=== PATIENT | male | born 1960 | race Caucasian/White ===

== ENCOUNTER 2023-03-01 02:30 | Day surgery (SDC) | payer OTHER, MEDICAID, SELFPAY ==
[2023-02-28 14:09] VITALS: BMI 41.8
--- NOTE | 2023-02-28 14:39 | PC.NURSE ---
Report to the Outpatient Waiting Room, entrance under the green pavilion located off [facility], at time __6:00AM on date __03/01/23 . Planned Procedure Time: __7:30AM . Time changes happen often and if your time is changed the preop area will call you the afternoon before. - You and your visitor will be asked to self-screen and do not enter if you have any COVID symptoms. - A mask is optional within the hospital at this time. Patients may have clear liquids (water, carbonated beverages, clear teas, apple juice) until 3 hours prior to surgery with a maximum of 20 ounces. - No food from midnight until time of surgery Take the following medications with a SIP of water the morning of surgery: ____HYDROCODONE NEEDED DO NOT STOP ANY OF YOUR OTHER PRESCRIPTION MEDICATIONS PRIOR TO SURGERY ?EXCEPT THE FOLLOWING Medications to discontinue per physician NONE Date to take last dose Please no make-up, nail egyptian, hairspray, perfume, deodorant, or body powder the day of surgery. No jewelry (including any body piercings) or valuables the day of surgery, leave them at home. Please take a shower or bath the night before, or the morning of, surgery with an antibacterial soap. Wear comfortable, loose fitting clothing. Children are encouraged to wear pajamas. - Jewelry must be removed prior to entering the operating room. Rings and piercings that are not removed may be cut off. - The hospital will not accept responsibility for valuables. - Please leave all valuables, including medications, at home the day of surgery. If you are going home after surgery, a licensed driver merchandiser must drive you home. - NO public transportation without another adult if you receive anesthesia. - We recommend that an adult stay with you for 24 hours following discharge. - We also recommend that you do not drive, make important decision, drink alcoholic beverages, or take any drugs that were not prescribed by your health care provider for at least 24 hours after your discharge time. Follow any additional instructions given to you from your surgeon. If you or anyone in your household have experienced Covid symptoms in the past week, please notify your surgeon or the nurse liaison at the phone number below for possible testing. Telephone instructions given to __PATIENT and asked if any additional questions and then verbalized understanding. Patient advised to call surgeon office or pre surgery nurse liaison [phone] if any additional questions.
[2023-03-01] VITALS (8 sets, daily range): BP systolic 146–169; BP diastolic 79–96; PULSE 61–80; RESP 12–20; TEMP 36.2; O2SAT 92–100
--- NOTE | ~2023-03-01 | XR_ITS ---
EXAMINATION: XR retrograde pyelo w/stent RT DATE: 03/01/2023 08:28 INDICATION: Right ureteral stone. TECHNIQUE: 52 intraoperative fluoroscopic views of the abdomen and pelvis were obtained. I was not pr esent. Fluoroscopy exposure time was 76 seconds. COMPARISON: None. FINDINGS: The right-sided retrograde pyelogram demonstrates severe hydronephrosis. There is a stone i n the proximal right ureter. The final images demonstrate a right internal ureteral stent in expected position. IMPRESSION: 1. Stone in the proximal right ureter with severe right hydronephrosis. 2. Right internal ureteral stent in expected position. Reviewed, dictated and finalized at location A.
--- NOTE | 2023-03-01 04:42 | WPDHPUPDATE1 ---
History and Physical Update Update Date/Time: 03/01/23 04:42 History and Physical has been reviewed, including an updated exam of the patient. There are NO changes in the patient's condition. Risks, benefits, and alternatives have been discussed and questions answered. Patient agrees to proceed with procedure.
[2023-03-01] MEDS: LACTATED RINGERS 1,000 ML 30 ML IV CONT (06:55)
--- NOTE | 2023-03-01 07:13 | P.PNAN_ITS ---
Anes - Initial Pre Proc Eval Procedure: Operation Date: 03/01/23 07:30 Proposed Procedures p Cystoscopy, Right Ureteroscopy, Right Retrograde Pyelogram, Possible Right Stone Extraction, Possible Right Stent Placement, Possible Holmium Laser - Oscar Mccord MD Date/Time: 03/01/23 07:13 Surgeon: Oscar Mccord MD Pre Op Diagnosis: renal stones Patient Data Age: 62 Gender: M Height: 1.8 m Weight: 136 kg Allergies Allergy/AdvReac Type Severity Reaction Status Date / Time No Known Allergies Allergy Verified 03/01/23 06:23 Home Medications Medication Instructions Recorded Confirmed Type acetaminophen 500 mg capsule 1,000 mg PO Q6H PRN Pain 02/28/23 03/01/23 History calcium carbonate 300 mg (750 mg) 300 mg PO BID PRN Indigestion 02/28/23 03/01/23 History chewable tablet (Tums) hydrocodone 5 mg-acetaminophen 325 1 tablet PO Q6-8H PRN Pain 02/28/23 03/01/23 History mg tablet Patient hx anesthesia problems: none Family hx anesthesia problems: none Results Review: All pre-operative results and documents have been reviewed as part of the pre- operative evaluation. [facility] Social History Social History Smoking status: Never smoker Alcohol intake: current Substance use: never Living arrangements: with family Additional living arrangements comments: FATHER Spiritual care concerns: No Anes - Eval Final PreProcedure Day of Procedure 03/01/23 07:13 Patient weight: normal and morbidly obese Heart: regular rate and rhythm Lungs: clear to auscultation Airway: Mallampati scale class III Neurological: alert and oriented Last oral intake: >/= 8 hours ASA classification: III Emergent: no Anesthetic plan: proceed Anesthesia type and monitoring: general LMA and standard monitoring Results Review: All pre-operative results and documents have been reviewed as part of the pre- operative evaluation. Informed Consent: The patient's anesthetic plan and its attendant risks and benefits were discussed with the patient/family/POA. Questions were solicited and answers provided to the satisfaction of the patient/family/POA.
[2023-03-01] MEDS: ceFAZolin 3 GM/D5W 100 ML 100 ML IVPB (07:28)
[2023-03-01] MEDS: LIDOCAINE HCL 2% GEL UROJET 10 ML PKG MUCOUS MEM (07:53)
--- NOTE | 2023-03-01 08:17 | W.PM.PROC2 ---
Procedure Note - Detailed Date of Procedure 03/01/23 Pre-op Diagnosis Right ureteral stone Post-op Diagnosis Same Procedure Performed Cystoscopy, right retrograde pyelography, right ureteroscopy with laser lithotripsy and stone extraction, right ureteral stent placement Surgeon Oscar Mccord MD Anesthesia General Description of Procedure patient is brought to the operative suite was prepped draped in routine sterile fashion while in dorsal lithotomy position after the uneventful induction of a general LMA anesthetic. Cystoscopy is undertaken with a 19 F rigid cystoscope. He has minimal prostatic hyperplasia. The bladder mucosa is normal. There was no intravesical foreign body or neoplasm. He has a single orthotopic ureteral orifice bilaterally. Eight F bulb tip catheter was used to obtain a right retrograde pyelogram it outlined the collecting system. 0.035 in glidewire was advanced into the right renal pelvis and the distal ureter was dilated with an 8 F 10 F dilator. An 11/13 F access sheath was placed along with a safety wire. Ureteroscopy was undertaken with a short tapered semi-rigid ureteral scope. His 1.4 cm stone had been in the proximal ureter but is displaced with retrograde pyelography into the renal pelvis. Using flexible ureteral scope I nudged into an upper pole calyx. Using a 200 micron holmium laser fiber I 1st dusted the stone with power settings of 0.3 once at a frequency of 50. And then dusted the smaller fragments at 0.5 w and 80 hertz frequency. All pieces less than 3 mm in size. A couple of pieces extracted with 1.9 F disposable stone back at the skin to be sent for analysis. A 4.8 F variable length stent was positioned with the proximal coil in the renal pelvis and distal coil in the bladder. Scopes wires removed the patient was taken recovery room good condition. Drains Yes Packing No Pathology Yes Complications No immediate complications Condition Stable Disposition PACU
[2023-03-01] MEDS: fentaNYL CITRATE INJ (*CRX) 100 MCG/2 ML VIAL 25 MCG IV PUSH ×2 (08:45→08:48)
== END 2023-03-01 10:12 | disposition home or self-care (01) ==
PROVIDERS: PCP Internal Medicine; Visit Provider Urology
PROC: (CPT 52352; principal; 2023-03-01 07:30)
DX: N20.1 Calculus of ureter (principal); E66.9 Obesity, unspecified; Z68.41 Body mass index [BMI] 40.0-44.9, adult
CPT/HCPCS: 52356; 74420; 82365; 88300; C1758; C1769; C1894; C2617; J0690; J1100; J2250; J2405; J2704; J3010; J7120; Q9966

== ENCOUNTER 2023-03-14 09:20 | Outpatient (CLI) | payer OTHER, MEDICAID, SELFPAY ==
--- NOTE | ~2023-03-14 | XR_ITS ---
Supine and upright views of the abdomen Clinical history: Kidney stone Findings: Bowel gas pattern is nonspecific. No evidence for obstruction or free air. No abnormal mass lesion or calcification is seen. Osseous structures are intact. Impression: No significant abnormality is seen. Reviewed, dictated and finalized at [facility]. Impression: No significant abnormality is seen.
== END 2023-03-14 09:21 | disposition home or self-care (01) ==
PROVIDERS: PCP Internal Medicine; Visit Provider Urology
DX: N20.0 Calculus of kidney (principal)
CPT/HCPCS: 74018

== ENCOUNTER 2023-04-26 09:22 | Outpatient (CLI) | payer OTHER, MEDICAID, SELFPAY ==
--- NOTE | ~2023-04-26 | XR_ITS ---
XR abdomen/kub 1V 04/26/2023 09:40 INDICATION: Kidney stones TECHNIQUE: KUB COMPARISON: None FINDINGS: Bowel gas pattern is normal. There is no evidence of free air, mass, organomegaly, ascites or obstruction. No abnormal calculi are seen. The bones appear intact. There are coarse prostate c alcifications. Moderate lumbar spondylosis. There are cholecystectomy clips. IMPRESSION: 1: No acute abdominal abnormality identified. Reviewed, dictated and finalized at location L.
== END 2023-04-26 09:23 | disposition home or self-care (01) ==
PROVIDERS: PCP Internal Medicine; Visit Provider Urology
DX: N20.0 Calculus of kidney (principal)
CPT/HCPCS: 74018

== ENCOUNTER 2024-05-29 00:25 | Day surgery (SDC) | payer OTHER, SELFPAY ==
--- NOTE | 2024-05-16 10:14 | P.HP_ITS ---
History of Present Illness History of Present Illness Consent: Risks, benefits, and alternatives have been discussed and questions answered. Patient agrees to proceed with procedure. Chief complaint: large bladder stone Narrative: Pilo Miller is a 63 year old malereports that for a year, since we removed his ureteral stent, that it manley like a mother-f'er, feels like he is pissing napalm. Additionally he reports intermittent marked obstructive voiding sym ptoms, episodes of incontinence and intermittent left flank pain. ?He had a renal ultrasound on 03/12/2024 the shows an atypical small cystic lesion in his left kidney and a possible bladder stone. CT urogram ( [facility]): 2.5 cm bladder stone with normal upper urinary tracts otherwise. Will plan cystoscopy with laser lithotripsy and extraction bladder stone Review of Systems Cardiovascular: Cardiovascular: Denies chest pain, Denies lightheadedness, Denies palpitations and Denies dyspnea Respiratory: Respiratory: Denies dyspnea Gastrointestinal: Gastrointestinal: Denies diarrhea, Denies nausea and Denies vomiting Genitourinary: Genitourinary: Denies hematuria and Denies dysuria Endocrine: Endocrine: Denies palpitations [facility] Social History Social History Smoking status: Never smoker Alcohol intake: current Substance use: never Living arrangements: with family Additional living arrangements comments: FATHER Spiritual care concerns: No Meds Home Medications and Allergies Home Medications Medication Instructions Recorded Confirmed Type acetaminophen 500 mg capsule 1,000 mg PO Q6H PRN Pain 02/28/23 03/01/23 History calcium carbonate (Tums) 300 mg PO BID PRN Indigestion 02/28/23 03/01/23 History hydrocodone 5 mg-acetaminophen 325 1 tablet PO Q6-8H PRN Pain 02/28/23 03/01/23 History mg tablet hydrocodone 5 mg-acetaminophen 325 1 - 2 tablet PO Q6H PRN pain #20 03/01/23 Rx mg tablet tabs sulfamethoxazole 800 1 tablet PO Q12H #6 tabs 03/01/23 Rx mg-trimethoprim 160 mg tablet Allergies Allergy/AdvReac Type Severity Reaction Status Date / Time No Known Allergies Allergy Verified 03/01/23 06:23 Exam Const: General: no acute distress Resp: Effort & Inspection: normal respiratory effort GI: Inspection: non-distended GI Palp: No abdominal tenderness and No Guarding due to palpation present (GI) Auscultation: normal bowel sounds Assessment and Plan Assessment and plan (1) Bladder stone: Code(s): N21.0 - Calculus in bladder Status: Acute Assessment and Plan: * Will plan cystoscopy with laser lithotripsy and extraction bladder stone
[2024-05-19 13:52] VITALS: BMI 35.9
--- NOTE | 2024-05-19 14:01 | PC.NURSE ---
Report to the Outpatient Waiting Room, entrance under the green pavilion located off [facility], at time __0630 on date _05/29/24_. Planned Procedure Time: __0830.? Time changes happen often and if your time is changed the preop area will call you the afternoon before. - You and your visitor will be asked to self-screen and do not enter if you have any COVID symptoms. Please call surgeon if you need to reschedule. - A mask is optional within the hospital at this time. Patients may have clear liquids (water, carbonated beverages, clear teas, apple juice) until 3 hours prior to surgery with a maximum of 20 ounces. - No food from midnight until time of surgery and no smoking - Infants may have breast milk until 4 hours before surgery, infant formula 6 hours prior to surgery. - Children will be allowed to drink immediately following surgery.? If applicable, please bring a bottle or sippy cup to assist with drinking. Juice, water, soda, and popsicles are readily available.? For infants on formula, please bring formula the day of surgery.? Pacifiers are allowed. Take only the following medications with a SIP of water on the morning of surgery: ____NONE DO NOT STOP ANY OF YOUR OTHER PRESCRIPTION MEDICATIONS PRIOR TO SURGERY EXCEPT THE FOLLOWING Medications to discontinue per physician NONE Date to take last dose Please no make-up, nail lithuanian, hairspray, perfume, deodorant, or body powder the day of surgery.? No jewelry (including any body piercings) or valuables the day of surgery, leave them at home.? Please take a shower or bath the night before, or the morning of, surgery with an antibacterial soap.? Wear comfortable, loose fitting clothing.? Children are encouraged to wear pajamas. - Jewelry must be removed prior to entering the operating room.? Rings and piercings that are not removed may be cut off. - The hospital will not accept responsibility for valuables.? - Please leave all valuables, including medications, at home the day of surgery. If you are going home after surgery, a licensed line haul driver must drive you home.? - NO public transportation without another adult if you receive anesthesia. - We recommend that an adult stay with you for 24 hours following discharge. - We also recommend that you do not drive, make important decision, drink alcoholic beverages, or take any drugs that were not prescribed by your health care provider for at least 24 hours after your discharge time. For Pediatric surgeries, we recommend two adults accompany the child home. Follow any additional instructions given to you from your surgeon. Telephone instructions given to _PATIENT__and asked if any additional questions and then verbalized understanding. Patient advised to call surgeon office or pre surgery nurse liaison [phone] if any additional questions.
[2024-05-29] VITALS (10 sets, daily range): BP systolic 137–168; BP diastolic 70–94; PULSE 55–65; RESP 10–20; TEMP 36.4–36.9; O2SAT 95–100
--- NOTE | 2024-05-29 06:27 | WPDHPUPDATE1 ---
History and Physical Update Update Date/Time: 05/29/24 06:27 History and Physical has been reviewed, including an updated exam of the patient. There are NO changes in the patient's condition. Risks, benefits, and alternatives have been discussed and questions answered. Patient agrees to proceed with procedure.
--- NOTE | 2024-05-29 06:39 | WPDANESEPPF ---
Anes - Initial Pre Proc Eval Procedure: Operation Date: 05/29/24 08:30 Proposed Procedures p Laser Lithotripsy with Bladder Stone Extraction, Possible Cystoscopy - Oscar Mccord MD Date/Time: 05/29/24 06:39 Surgeon: Oscar Mccord MD Pre Op Diagnosis: large bladder stone Patient Data Age: 63 Gender: M Height: 1.83 m Weight: 120 kg Allergies Allergy/AdvReac Type Severity Reaction Status Date / Time No Known Allergies Allergy Verified 05/19/24 13:49 Home Medications Medication Instructions Recorded Confirmed Type calcium carbonate (Tums) 300 mg PO BID PRN Indigestion 02/28/23 05/19/24 History Patient hx anesthesia problems: none Family hx anesthesia problems: none Results Review: All pre-operative results and documents have been reviewed as part of the pre-operative evaluation. [facility] Past Medical History Medical History (Updated 05/29/24 @ 06:39 by Romeo Palm MD) Obesity DIONY (obstructive sleep apnea) Surgical History Surgical History (Updated 05/29/24 @ 06:39 by Romeo Palm MD) Hx of cystoscopy Social History Social History Smoking status: Never smoker Alcohol intake: current Alcohol use details: 3-4 BEERS A YEAR Substance use: never Living arrangements: alone Additional living arrangements comments: FATHER Spiritual care concerns: No Anes - Eval Final PreProcedure Day of Procedure 05/29/24 06:39 Patient weight: obese Heart: regular rate and rhythm Lungs: clear to auscultation Airway: Mallampati scale class II Neurological: alert and oriented Last oral intake: >/= 8 hours ASA classification: III Emergent: no Anesthetic plan: proceed Anesthesia type and monitoring: general LMA and standard monitoring Results Review: All pre-operative results and documents have been reviewed as part of the pre-operative evaluation. Informed Consent: The patient's anesthetic plan and its attendant risks and benefits were discussed with the patient/family/POA. Questions were solicited and answers provided to the satisfaction of the patient/family/POA.
[2024-05-29] MEDS: LACTATED RINGERS 1,000 ML 30 ML IV CONT (07:00)
[2024-05-29] MEDS: ceFAZolin 3 GM/D5W 100 ML 100 ML IVPB (08:19)
[2024-05-29] MEDS: LIDOCAINE HCL 2% GEL UROJET 10 ML PKG MUCOUS MEM (08:51)
--- NOTE | 2024-05-29 09:42 | P.OP_ITS ---
Procedure Note - Detailed Date of Procedure 05/29/24 Pre-op Diagnosis Large bladder stone Post-op Diagnosis Same Procedure Performed Cystoscopy, laser lithotripsy large bladder calculus ( 3 cm) Surgeon Oscar Mccord MD Anesthesia General Description of Procedure patient is brought to the operative suite was prepped draped in routine sterile fashion while in dorsal lithotomy position after the uneventful induction of a general LMA anesthetic. Cystoscopy was undertaken with a 21 F rigid cystoscope. He has moderate lateral lobe hyperplasia of the prostate in a small median lobe. Bladder mucosa is without hyperemia other than what would be expected from his large bladder stone. I see no intravesical neoplasm. He has a very large bladder stone. Using a 500 micron [employer] laser fiber I dusted the stone and extracted all pieces with the [employer] evacuator. There was negligible bleeding so I opted not to place a urethral catheter. The patient was taken to the recovery room in good condition Drains No Pathology Yes Complications No immediate complications
[2024-05-29] MEDS: fentaNYL CITRATE INJ (*CRX) 100 MCG/2 ML VIAL 25 MCG IV PUSH ×2 (10:11→10:15)
== END 2024-05-29 11:40 | disposition home or self-care (01) ==
PROVIDERS: PCP Internal Medicine; Visit Provider Urology
PROC: (CPT 52352; principal; 2024-05-29 08:30)
DX: N21.0 Calculus in bladder (principal); G47.33 Obstructive sleep apnea (adult) (pediatric); E66.9 Obesity, unspecified; Z68.37 Body mass index [BMI] 37.0-37.9, adult
CPT/HCPCS: 52318; 82365; 88300; A9270; C1769; J0690; J1100; J1940; J2003; J2250; J2405; J2704; J3010; J7120; J9201